=== PATIENT | female | born 1995 | race Caucasian/White ===

== ENCOUNTER 2017-04-10 16:53 | Emergency (ER) | payer OTHER ==
[~2017-04-10] VITALS: Ht 167.6 cm; Wt 54.7 kg
[~2017-04-10 16:53] MED LIST: IBUP-1222 PO; OXYC-302 PO; PREN1TAB60 PO
[2017-04-10 18:07] LABS: BASOPHILS # (AUTO) 0.01 x10^3/uL (0-0.1); BASOPHILS % (AUTO) 0 % (0-1); EOSINOPHILS # (AUTO) 0.04 x10^3/uL (0-0.4); EOSINOPHILS % (AUTO) 1 % (1-7); LYMPHOCYTES # (AUTO) 1.11 x10^3/uL (1-3.4); LYMPHOCYTES % (AUTO) 15 % (22-44); MD NO; MEAN CORPUSCULAR HGB CONC 33.8 g/dL (32.4-35.8); MEAN CORPUSCULAR VOLUME 88.8 fL (80-100); MEAN PLATELET VOLUME 8.8 fL (7.4-10.4); MONOCYTES # (AUTO) 0.33 x10^3/uL (0.2-0.8); MONOCYTES % (AUTO) 5 % (2-9); NEUTROPHILS % (AUTO) 80 % (42-75); PLATELET COUNT 271 x10^3/uL (130-400); RED BLOOD COUNT 4.28 x10^6/uL (3.82-5.3)
[2017-04-10 18:16] LABS: ALBUMIN 3.4 g/dL (3.4-5.0); ANION GAP 8 mmol/L (5-15); CALCIUM 8.8 mg/dL (8.5-10.1); CHLORIDE 109 mmol/L (98-107)
[2017-04-10 19:37] LABS: MICROSCOPIC AUTO
[2017-04-10 20:05] VITALS: BP 111/82
[2017-04-10 20:06] LABS: CULTURE INDICATED? NO
== END 2017-04-10 20:19 | disposition home or self-care (01) ==
LOC: ED 19:32
DX: O20.0 Threatened abortion (principal); Z3A.11 11 weeks gestation of pregnancy
CPT/HCPCS: 36415; 76801; 80048; 81001; 82040; 84702; 85025; 86901

== ENCOUNTER → 2017-10-08 | Outpatient (CLI) | payer OTHER ==
[~2017-10-08] VITALS: Ht 167.6 cm; Wt 70.0 kg
[~2017-10-08] MED LIST changes: +IBUP200T49 PO; +TERBUTALINE 1 MG/ML, 1ML IV ONE; +TERBUTALINE 1 MG/ML, 1ML ONE
[2017-10-08 12:27] VITALS: BP 120/64
[2017-10-08 12:53] LABS: BASOPHILS # (AUTO) 0.04 x10^3/uL (0-0.1); BASOPHILS % (AUTO) 1 % (0-1); EOSINOPHILS # (AUTO) 0.03 x10^3/uL (0-0.4); EOSINOPHILS % (AUTO) 0 % (1-7); LYMPHOCYTES # (AUTO) 1.53 x10^3/uL (1-3.4); LYMPHOCYTES % (AUTO) 20 % (22-44); MD NO; MEAN CORPUSCULAR HEMOGLOBIN 27.9 pg (27.0-34.8); MEAN CORPUSCULAR HGB CONC 32.9 g/dL (32.4-35.8); MEAN CORPUSCULAR VOLUME 85.1 fL (80-100); MEAN PLATELET VOLUME 8.8 fL (7.4-10.4); MONOCYTES # (AUTO) 0.76 x10^3/uL (0.2-0.8); MONOCYTES % (AUTO) 10 % (2-9); NEUTROPHILS # (AUTO) 5.49 x10^3/uL (1.8-6.8); NEUTROPHILS % (AUTO) 70 % (42-75); PLATELET COUNT 255 x10^3/uL (130-400); RED BLOOD COUNT 3.86 x10^6/uL (3.82-5.3); RED CELL DISTRIBUTION WIDTH 13.7 % (9.6-15.2)
== END | disposition home or self-care (01) ==
LOC: LDOP 11:59
PROVIDERS: ATTEND Obstetrics & Gynecology Gynecology
DX: O26.893 Other specified pregnancy related conditions, third trimester (principal); Z3A.37 37 weeks gestation of pregnancy
CPT/HCPCS: 36415; 59025; 85025; 86850; 86900; 96374; 99201; J3105; G0463

== ENCOUNTER 2017-10-26 07:42 | Inpatient (IN) | payer OTHER ==
[~2017-10-26] VITALS: Ht 167.6 cm; Wt 71.4 kg
[~2017-10-26 07:42] MED LIST changes: -IBUP200T49 PO; -TERBUTALINE 1 MG/ML, 1ML IV ONE; -TERBUTALINE 1 MG/ML, 1ML ONE
[2017-10-26 07:49] VITALS: BP 134/75
[2017-10-26] MEDS ORDERED: OXYTOCIN 30U/ 0.9% NaCL 500ML 500 ML IV ONE (08:03)
[2017-10-26] MEDS ORDERED: D5%-LACTATED RINGERS 1,000 ML IV SCH (08:03)
[2017-10-26] MEDS ORDERED: TERBUTALINE 1 MG/ML, 1ML IVPush PRN (08:30)
[2017-10-26] MEDS ORDERED: ONDANSETRON 2MG/ML, 2ML IVPush PRN (08:30)
[2017-10-26] MEDS ORDERED: FENTANYL PF 100 MCG/2ML IV PRN (08:30)
[2017-10-26] MEDS: LACTATED RINGERS 1,000 ML IV SCH ×2 (08:53→11:33)
[2017-10-26] MEDS ORDERED: LIDOCAINE/PF 1%, 30ML ONE (09:20)
[2017-10-26] MEDS ORDERED: NEWBORN KIT ONE (09:20)
[2017-10-26] MEDS ORDERED: MISOPROSTOL 200 MCG TABLET ONE (09:21)
[2017-10-26] MEDS ORDERED: OXYTOCIN 30U/ 0.9% NaCL 500ML 500 ML ONE (09:21)
[2017-10-26 10:04] LABS: BASOPHILS # (AUTO) 0.03 x10^3/uL (0-0.1); BASOPHILS % (AUTO) 0 % (0-1); EOSINOPHILS # (AUTO) 0.01 x10^3/uL (0-0.4); EOSINOPHILS % (AUTO) 0 % (1-7); LYMPHOCYTES % (AUTO) 11 % (22-44); MD NO; MEAN CORPUSCULAR HEMOGLOBIN 27.2 pg (27.0-34.8); MEAN CORPUSCULAR VOLUME 82.4 fL (80-100); MEAN PLATELET VOLUME 9.6 fL (7.4-10.4); MONOCYTES # (AUTO) 0.81 x10^3/uL (0.2-0.8); MONOCYTES % (AUTO) 8 % (2-9); NEUTROPHILS # (AUTO) 8.82 x10^3/uL (1.8-6.8); NEUTROPHILS % (AUTO) 81 % (42-75); PLATELET COUNT 252 x10^3/uL (130-400); RED BLOOD COUNT 4.08 x10^6/uL (3.82-5.3); RED CELL DISTRIBUTION WIDTH 14.4 % (9.6-15.2)
[2017-10-26] MEDS ORDERED: FENTANYL PF 100 MCG/2ML ONE ×2 (14:47→15:55)
[2017-10-26] MEDS: FENTANYL PF 100 MCG/2ML IVPush PRN ×2 (14:52→15:59)
[2017-10-26] MEDS ORDERED: IBUPROFEN 600 MG TABLET ONE (18:01)
[2017-10-26] MEDS ORDERED: OXYcodone/APAP 5/325MG TABLET ONE (18:01)
[2017-10-26] MEDS: OXYTOCIN 30U/ 0.9% NaCL 500ML 500 ML IV SCH (18:06)
[2017-10-26] MEDS ORDERED: IBUPROFEN 600 MG TABLET PO PRN (18:30)
[2017-10-26] MEDS ORDERED: DOCUSATE 100 MG CAPSULE PO PRN (18:30)
[2017-10-26] MEDS ORDERED: METHYLERGONOVINE 0.2 MG/ML IM PRN (18:30)
[2017-10-26] MEDS ORDERED: CARBOPROST TROMETHAMINE 250 MCG/ML, 1ML IM PRN (18:30)
[2017-10-26] MEDS ORDERED: BISACODYL 10 MG SUPP PR PRN (18:30)
[2017-10-26] MEDS ORDERED: OXYcodone/APAP 5/325MG TABLET PO PRN ×2 (18:30)
[2017-10-26] MEDS ORDERED: MISOPROSTOL 200 MCG TABLET PR PRN (18:30)
[2017-10-26] MEDS ORDERED: IBUPROFEN 800 MG TABLET PO PRN (18:30)
[2017-10-26] MEDS ORDERED: ACETAMINOPHEN 325 MG TABLET PO PRN (18:30)
[2017-10-26] MEDS ORDERED: METOCLOPRAMIDE 5 MG/ML, 2ML IV PRN (18:30)
[2017-10-26] MEDS ORDERED: ONDANSETRON 2MG/ML, 2ML IV PRN (18:30)
[2017-10-26 19:50] VITALS: BP 116/65
[2017-10-27 00:05] VITALS: BP 106/68
[2017-10-27] MEDS: OXYTOCIN 30U/ 0.9% NaCL 500ML 500 ML IV SCH ×2 (04:06→14:06)
[2017-10-27 04:30] VITALS: BP 110/57
[2017-10-27 05:33] LABS: BASOPHILS # (AUTO) 0.06 x10^3/uL (0-0.1); BASOPHILS % (AUTO) 0 % (0-1); EOSINOPHILS # (AUTO) 0.02 x10^3/uL (0-0.4); EOSINOPHILS % (AUTO) 0 % (1-7); LYMPHOCYTES # (AUTO) 1.71 x10^3/uL (1-3.4); LYMPHOCYTES % (AUTO) 12 % (22-44); MD NO; MEAN CORPUSCULAR HGB CONC 32.7 g/dL (32.4-35.8); MEAN CORPUSCULAR VOLUME 82.5 fL (80-100); MEAN PLATELET VOLUME 9.1 fL (7.4-10.4); MONOCYTES # (AUTO) 1.14 x10^3/uL (0.2-0.8); MONOCYTES % (AUTO) 8 % (2-9); NEUTROPHILS # (AUTO) 11.83 x10^3/uL (1.8-6.8); NEUTROPHILS % (AUTO) 80 % (42-75); PLATELET COUNT 221 x10^3/uL (130-400); RED BLOOD COUNT 3.43 x10^6/uL (3.82-5.3); RED CELL DISTRIBUTION WIDTH 14.1 % (9.6-15.2)
[2017-10-27 07:27] VITALS: BP 116/72
[2017-10-27] MEDS ORDERED: PRENATAL VIT/IRON/FA 1 EACH TABLET PO SCH (09:00)
[2017-10-27 12:34] VITALS: BP 111/65
[2017-10-27] MEDS ORDERED: IBUP200T49 PO (13:58)
== END 2017-10-27 17:40 | disposition home or self-care (01) | DRG 775 ==
LOC: LDOP 07:42 → LDIP 08:03 → 2NW 19:38
PROVIDERS: ADMIT Obstetrics & Gynecology Gynecology; ATTEND Obstetrics & Gynecology Gynecology
PROC: 10907ZC Drainage of Amniotic Fluid, Therapeutic from Products of Conception, Via Natural or Artificial Opening (ICD-10-PCS; principal; 2017-10-26)
PROC: 10E0XZZ Delivery of Products of Conception, External Approach (ICD-10-PCS; 2017-10-26)
DX: O70.0 First degree perineal laceration during delivery (principal); Z37.0 Single live birth; Z3A.39 39 weeks gestation of pregnancy; Z80.49 Family history of malignant neoplasm of other genital organs; Z83.3 Family history of diabetes mellitus
CPT/HCPCS: 36415; 85025; 86850; 86900; J3010; J2590; J7120